=== PATIENT | female | born 1980 | race Caucasian/White ===

== ENCOUNTER → 2018-03-17 14:27 | Outpatient (CLI) | payer OTHER, MEDICAID, SELFPAY ==
[2018-03-17 16:25] LABS: Add Manual Diff / Slide Review NO; Basophils Percent Auto 0.8 % (0-2); Eosinophils Percent Auto 1.6 % (2-4); Hematocrit 40.8 % (36-46); Hemoglobin 14.4 g/dL (12.0-16.0); Lymphocytes Percent Auto 28.3 % (25-40); Mean Corpuscular HGB Conc 35.3 % (30-36); Mean Corpuscular Hemoglobin 31.5 PG (26-34); Mean Corpuscular Volume 89.4 fL (80-100); Monocytes Percent Auto 5.8 % (3-14); Neutrophils Absolute Auto 4800 /uL (3000-5900); Neutrophils Percent Auto 63.5 % (50-75); Platelet Count 286 X10^3/uL (150-400); Red Blood Cell Count 4.57 X10^6/uL (4.0-5.2); Red Cell Distribution Width 12.8 % (11.6-14.8); White Blood Cell Count 7.5 X10^3/uL (4.5-11.0)
[2018-03-17 16:34] LABS: Alanine Aminotransferase 34 IU/L (9-52); Albumin 4.6 g/dL (3.5-5.0); Albumin Globulin Ratio 1.8 (1.0-2.8); Alkaline Phosphatase 44 U/L (38-126); Aspartate Aminotransferase 18 IU/L (14-36); BUN Creatinine Ratio 21.7 (6-22); Bilirubin Total 0.5 mg/dL (0.2-1.3); Blood Urea Nitrogen 13 mg/dL (7-17); Calcium 9.7 mg/dL (8.4-10.2); Carbon Dioxide 28 mmol/L (22-32); Chloride 100 mmol/L (98-107); Estimated Glomerular Filt Rate > 60.0 mL/min (>60); Globulin 2.6 g/dL (1.7-4.1); Glucose 68 mg/dL (70-100); HEMOLYSIS < 15 (0-50); Potassium 4.3 mmol/L (3.4-5.1); Sodium 141 mmol/L (137-145); Total Protein 7.2 g/dL (6.3-8.2)
[2018-03-17 17:03] LABS: Thyroid Stimulating Hormone 2.51 uIU/mL (0.47-4.68)
[2018-03-17 17:39] LABS: Folate 16.2 ng/mL (2.76-20.0); Vitamin B12 777 pg/mL (239-931)
[2018-03-23 12:21] LABS: Rapid Plasma Reagin NON-REACTIVE
== END ==
PROVIDERS: Visit Provider Internal Medicine
DX: R51 Headache (principal); R27.0 Ataxia, unspecified
CPT/HCPCS: 36415; 80053; 82607; 82746; 84443; 85025; 86592

== ENCOUNTER → 2020-01-08 13:42 | Outpatient (CLI) | payer OTHER, MEDICAID, SELFPAY ==
[2020-01-08 15:03] LABS: Influenza A - CEPHEID Flu A NEGATIVE (NEGATIVE); Influenza B - CEPHEID Flu B NEGATIVE (NEGATIVE)
[2020-01-11 04:22] LABS: COVID19 Sendout Not Detected (Not Detected)
== END ==
PROVIDERS: PCP Obstetrics & Gynecology; Visit Provider Physician Assistant
DX: R06.02 Shortness of breath (principal)
CPT/HCPCS: 87502; 87635

== ENCOUNTER → 2025-01-11 17:20 | Outpatient (CLI) | payer SELFPAY ==
--- NOTE | 2025-01-11 17:23 | DI.RAD.S_ITS ---
PROCEDURE: XR CHEST 2V INDICATIONS: Cough, SOB TECHNIQUE: 2 views of the chest were acquired. COMPARISON: None. FINDINGS: Surgical changes and devices: None. Lungs and pleura: Lungs are clear. No pleural effusions or pneumothorax. Mediastinum: Mediastinal contours are normal. Heart size is normal. Bones and chest wall: No suspicious bony abnormalities. Soft tissues appear unremarkable. IMPRESSION: No acute cardiopulmonary abnormality is seen. Dictated by: Karen Chase M.D. on 01/11/2025 at 18:07 Approved by: Karen Chase M.D. on 01/11/2025 at 18:08
== END ==
LOC: RAD 17:22
PROVIDERS: PCP Obstetrics & Gynecology; Referring Provider Physician Assistant Surgical; Visit Provider Physician Assistant Surgical
DX: R05.9 Cough, unspecified (principal)
CPT/HCPCS: 71046

== ENCOUNTER 2025-01-11 17:43 | Emergency (ER) | payer SELFPAY ==
[2025-01-11 18:04] VITALS: BP 116/76; PULSE 74; RESP 15; TEMP 36.8; O2SAT 99; BMI 29.9
[2025-01-11 18:26] VITALS: PULSE 89; RESP 18; O2SAT 100
[2025-01-11] MEDS: ALBUTEROL/IPRATROPIUM 3 ML AMPUL INH ×2 (18:26→19:06)
[2025-01-11 18:45] VITALS: PULSE 87; O2SAT 99
[2025-01-11 19:06] VITALS: PULSE 97; RESP 16; O2SAT 96
--- NOTE | 2025-01-11 20:29 | ED.URI ---
HPI - URI/Sore Throat General Chief Complaint: Upper Respiratory Symptoms Stated Complaint: sent by [facility], pneumonia Time Seen by Provider: 01/11/25 20:27 Source: patient Mode of arrival: Family Vehicle History of Present Illness HPI Narrative: Patient is a 44-year-old female history of depression presenting today with ongoing cough and shortness of breath. She reports been like this for about a month. She initially got a little bit better but then she started feeling ill again. She was started on Augmentin 4 days ago she says she does not really feel better but she has a little different. She was given 2 nebulizer treatments prior to my evaluation she does report improvement respiratory also reports significant improvement. She otherwise appears well no. No nausea no vomiting. She denies fever sometimes she feels like she was has hot and cold but every time she takes a temperature she does not have 1. Related Data Previous Rx's Medication Instructions Recorded albuterol sulfate 90 mcg/actuation 2 puff inhalation Q4-6H PRN 01/08/20 aerosol inhaler shortness of breath or wheezing #18 grams amoxicillin 875 mg-potassium 1 tab PO Q12H 7 days #14 tabs 01/08/25 clavulanate 125 mg tablet benzonatate 200 mg capsule 200 mg PO BID PRN cough #30 caps 01/08/25 azithromycin 250 mg tablet See Rx Instructions PO .COMPLEX #6 01/11/25 tabs prednisone 20 mg tablet 40 mg (2 x 20 mg) PO DAILY #10 tabs 01/11/25 Allergies Allergy/AdvReac Type Severity Reaction Status Date / Time From Allergy Mild RASH Uncoded 01/11/25 18:11 Patient History Social History Smoking Status: Former smoker Smoking Status: Former smoker tobacco type: cigarettes Exam Initial Vital Signs Initial Vital Signs: Vital Signs Temperature 98.2 F 01/11/25 18:04 Pulse Rate 74 01/11/25 18:04 Respiratory Rate 15 01/11/25 18:04 Blood Pressure 116/76 01/11/25 18:04 Pulse Oximetry 99 01/11/25 18:04 Oxygen Delivery Method Room Air 01/11/25 18:04 GENERAL: Alert pleasant well-appearing 44-year-old female and in no acute distress. HEENT: Head atraumatic,EOMI, pupils reactive, face symmetric, moist mucous membranes CARDIOVASCULAR: Regular rate and rhythm without murmurs, rubs or gallops. RESPIRATORY: Breath sounds equal bilaterally, no wheezes rales or rhonchi. Mild coughing no wheezing no respiratory distress ABDOMEN: Soft, nontender. Normoactive bowel sounds all 4 quadrants. No guarding or rebound. EXTREMITIES: Normal range of motion, no clubbing or edema. Neurovascularly intact NEUROLOGICAL: Alert and oriented x4.Normal gait and speech. Cranial nerves II through XII grossly intact. SKIN: Warm, dry, no laceration, no petechiae, no rashes or lesions. Course Orders Ordered: ED Orders 01/11/25 18:15 RT Consult Eval and Treat NOW Discontinued Medications Albuterol (Albuterol Hfa Prepack) 1 box MISC DIRECTED ONE Stop: 01/11/25 20:42 Last Admin: 01/11/25 20:58 Dose: 1 box Documented By: LEESA Albuterol/Ipratropium (Albuterol/Ipratropium 3 Ml Ampul) 3 ml INH NOW ONE Stop: 01/11/25 18:24 Last Admin: 01/11/25 18:26 Dose: 3 ml Documented By: LILA Albuterol/Ipratropium (Albuterol/Ipratropium 3 Ml Ampul) 3 ml INH NOW ONE Stop: 01/11/25 19:04 Last Admin: 01/11/25 19:06 Dose: 3 ml Documented By: LILA Vital Signs Vital signs: Vital Signs - 8 hr 01/11/25 18:04 01/11/25 18:26 01/11/25 18:45 Temperature 98.2 F Pulse Rate 74 89 87 Respiratory Rate 15 18 Blood Pressure 116/76 Pulse Oximetry 99 100 99 Oxygen Delivery Method Room Air Room Air 01/11/25 19:06 01/11/25 20:54 Temperature Pulse Rate 97 H 79 Respiratory Rate 16 18 Blood Pressure 111/70 Pulse Oximetry 96 97 Oxygen Delivery Method Room Air Room Air MDM - URI/Sore Throat Imaging Data Chest x-ray: Radiologist's Impression: PROCEDURE: XR CHEST 2V INDICATIONS: Cough, SOB TECHNIQUE: 2 views of the chest were acquired. COMPARISON: None. FINDINGS: Surgical changes and devices: None. Lungs and pleura: Lungs are clear. No pleural effusions or pneumothorax. Mediastinum: Mediastinal contours are normal. Heart size is normal. Bones and chest wall: No suspicious bony abnormalities. Soft tissues appear unremarkable. IMPRESSION: No acute cardiopulmonary abnormality is seen. Dictated by: Karen Chase M.D. on 01/11/2025 at 18:07 MDM Narrative Medical decision making narrative: Patient healthy 44-year-old female presenting today with ongoing cough and upper respiratory like symptoms. She actually overall appears well nontoxic vitals are stable. X-ray has been reviewed and negative. She did improve with bronchodilators. She has no history of asthma or smoking. But does feel a lot better. At this time we will go ahead and treat her for reactive airway atypical pneumonia. I will add a Z-Dave for her. Discussed with her if symptoms do not improve then I would add blood work and further evaluation and workup. She agrees with this plan. She was offered 1 more nebulizer treatment but declined saying it makes her too shaky. Given a spacer and teaching Differential diagnosis includes reactive airway disease congestive heart failure acute coronary syndrome pneumonia pulmonary embolism Discharge Plan Departure Patient Disposition: Home Clinical Impression: Atypical pneumonia Instructions: DI for Atypical Pneumonia Activity Restrictions/Additional Instructions: *You have been diagnosed with atypical pneumonia *What to do: At this time as try prednisone inhaler and azithromycin CV Cory improvement. If not having significant improvement may need further evaluation with blood work *Continue to take medications as directed Z-Dave take as directed Prednisone 40 mg once a day for 5 days Albuterol 2 puffs every 4 hours if needed for cough or shortness of breath I would definitely take some before bed *Follow up with your primary care provider in 2-3 days or call [phone] *Return to ER if you should have increasing cough chest pain shortness of or any new, worsening or concerning symptoms Prescriptions: New azithromycin 250 mg tablet See Rx Instructions PO .COMPLEX Qty: 6 0RF Rx Instructions: For 250 mg dose pack: take 500 mg today (day 1), then 250 mg for 4 days (days 2-5) prednisone 20 mg tablet 40 mg PO DAILY Qty: 10 0RF No Action albuterol sulfate 90 mcg/actuation HFA aerosol inhaler 2 puff INHALATION Q4-6H PRN (Reason: shortness of breath or wheezing) Qty: 18 0RF Rx Instructions: Dispense with spacer amoxicillin-pot clavulanate 875-125 mg tablet 1 tab PO Q12H 7 Days Qty: 14 0RF benzonatate 200 mg capsule 200 mg PO BID PRN (Reason: cough) Qty: 30 0RF Referrals: Miscellaneous,Doctor, MD [Primary Care Provider] - Stand Alone Forms: Patient Portal/API/Survey
[2025-01-11 20:54] VITALS: BP 111/70; PULSE 79; RESP 18; O2SAT 97
[2025-01-11] MEDS: ALBUTEROL HFA PREPACK 1 BOX MISC (20:58)
== END 2025-01-11 21:00 | disposition home or self-care (01) ==
PROVIDERS: Emergency Provider Emergency Medicine
DX: J18.9 Pneumonia, unspecified organism (principal)
CPT/HCPCS: 94640; 99283